=== PATIENT | female | born 1975 | race Caucasian/White ===

== ENCOUNTER 2021-10-27 14:38 | Emergency (ER) | payer MEDICAID ==
[~2021-10-27] VITALS: Ht 154.9 cm; Wt 74.0 kg
[~2021-10-27 14:38] MED LIST: NONE REPORTED
[2021-10-27] MEDS ORDERED: KETOROLAC 60MG/2ML VIAL IM STA (16:22)
[2021-10-27] MEDS ORDERED: ONDANSETRON HCL 4MG/2ML INJ IM ONE (16:30)
[2021-10-27] MEDS ORDERED: FAMOTIDINE 20MG TABLET PO ONE (16:30)
[2021-10-27 17:04] LABS: CLARITY URINE CLEAR (CLEAR); COLOR URINE DARK YELLOW (YELLOW); KETONES URINE TRACE (NEGATIVE); LEUKOCYTE ESTERASE URINE 1+ (NEGATIVE); NITRITE URINE NEGATIVE (NEGATIVE); OCCULT BLOOD URINE TRACE (NEGATIVE); PH URINE 5.5 (4.5-8.0); PROTEIN URINE TRACE (NEGATIVE); SPECIFIC GRAVITY URINE 1.025 (1.005-1.030); UROBILINOGEN URINE 0.2 E.U./dL (0.2-1.0)
[2021-10-27 18:53] LABS: BASOPHILS % 0.4 % (0.0-2.0); EOSINOPHILS % 1.2 % (0.0-5.0); HEMATOCRIT. 44.2 % (36.0-48.0); HEMOGLOBIN. 14.9 g/dL (12.0-16.0); MEAN CORPUSCULAR HEMOGLOBIN 30.2 pg (28.0-32.0); MEAN CORPUSCULAR VOLUME 89.9 fL (81.0-99.0); MEAN PLATELET VOLUME 10.5 fl (7.4-10.4); MONOCYTES % 4.1 % (2.0-8.0); NEUTROPHILS % 72.3 % (40.0-76.0); PLATELET 220 x1000/uL (130-400); RED BLOOD CELL COUNT 4.92 mill/uL (4.2-5.4); RED CELL DISTRIBUTION WIDTH 13.1 % (11.6-14.6)
[2021-10-27 18:56] LABS: CHLORIDE 101 mEq/L (98-107)
[2021-10-27] MEDS ORDERED: CEPH500C2 MT (19:33)
[2021-10-27 19:48] VITALS: BP 114/78
== END 2021-10-27 19:51 | disposition home or self-care (01) ==
LOC: ER 14:48
DX: R10.84 Generalized abdominal pain (principal); N30.00 Acute cystitis without hematuria; J45.909 Unspecified asthma, uncomplicated; Z90.49 Acquired absence of other specified parts of digestive tract
CPT/HCPCS: 36415; 80053; 81003; 81025; 83690; 85025; 96372; 99284; J1885; J2405